=== PATIENT | male | born 1960 | race Caucasian/White ===

== ENCOUNTER 2016-07-17 19:31 | Emergency (ER) | END 2016-07-17 20:11 | disposition home or self-care (01) | DX: S16.1XXA Strain of muscle, fascia and tendon at neck level, initial encounter (principal); S39.012A Strain of muscle, fascia and tendon of lower back, initial encounter; V89.2XXA Person injured in unspecified motor-vehicle accident, traffic, initial encounter ==

== ENCOUNTER 2016-11-01 22:09 | Emergency (ER) | payer BC ==
[~2016-11-01] VITALS: Ht 167.6 cm; Wt 69.0 kg
[~2016-11-01 22:09] MED LIST: CYCL-319 PO; HYDR-906 PO; IBUP400T22 PO
[2016-11-01 22:22] VITALS: Ht 167.6 cm; Wt 69.0 kg
[2016-11-01] MEDS ORDERED: SOD CHLORIDE 0.9% 500 ML IV STA (22:32)
[2016-11-01] MEDS ORDERED: DIPHENHYDRAMINE 50 MG INJ IV STA (22:32)
[2016-11-01] MEDS ORDERED: METOCLOPRAMIDE 10 MG INJ IV STA (22:32)
[2016-11-01 22:59] LABS: ADD SCAN DIFF NO
[2016-11-01 23:01] LABS: BASOPHILS % 0.2 % (0.0-2.0); EOSINOPHILS # 0.1 10^3/ul (0.0-0.5); EOSINOPHILS % 1.8 % (0.0-7.0); HEMATOCRIT 40.3 % (42.0-52.0); LYMPHOCYTES # 2.3 10^3/ul (0.8-2.9); MEAN CORPUSCULAR HEMOGLOBIN 29.4 pg (29.0-33.0); MEAN CORPUSCULAR HGB CONC 34.7 g/dl (32.0-37.0); MEAN CORPUSCULAR VOLUME 84.7 fl (82.0-101.0); MEAN PLATELET VOLUME 9.9 fl (7.4-10.4); MONOCYTE # 0.3 10^3/ul (0.3-0.9); MONOCYTES % 5.3 % (0.0-11.0); NEUTROPHIL # 2.9 10^3/ul (1.6-7.5); NEUTROPHILS % 52.3 % (39.0-77.0); PLATELET COUNT 251 10^3/UL (140-415); RED BLOOD COUNT 4.76 10^6/ul (4.70-6.10); RED CELL DISTRIBUTION WIDTH 13.2 % (11.5-14.5); WHITE BLOOD COUNT 5.6 10^3/ul (4.8-10.8)
[2016-11-01 23:12] LABS: INR 0.83; PROTIME 11.4 Sec (12.2-14.2); PT RATIO 0.9
[2016-11-01 23:13] LABS: PARTIAL THROMBOPLASTIN TIME 26.2 Sec (25.0-35.0)
[2016-11-01 23:17] LABS: CALCIUM 8.7 mg/dl (8.4-10.2); CREATININE 0.88 mg/dl (0.61-1.24)
[2016-11-01] MEDS ORDERED: IOHEXOL 300MG/ML 150 ML BTL ONE (23:37)
[2016-11-01] MEDS ORDERED: SOD CHLORIDE 0.9% 100 ML ONE (23:37)
--- NOTE | 2016-11-02 00:37 | RADRPT ---
PROCEDURE: CT brain without contrast CLINICAL INDICATION: Headaches TECHNIQUE: A CT of the brain was performed utilizing axial sections from the skull base through th e vertex without contrast. Sagittal and coronal images were also reformatted. The exam CTDIvol = 45. 01 mGy and DLP = 810.25 mGy-cm. COMPARISON: None available FINDINGS: No acute intracranial hemorrhage is identified. There is no mass effect or midline shift. No extra -axial fluid collection is seen. The ventricles and sulci are within normal limits for size and con figuration. The density of the brain is within normal limits. Dickinson-white differentiation is preser debi. The osseous structures are unremarkable. The mastoid air cells and visualized paranasal sinuses are clear. RPTAT:HJJR IMPRESSION: Unremarkable noncontrast CT of the brain. Physician Nancy Date Time Electronically viewed and signed by Physician Nancy on 11/02/2016 00:37 /
--- NOTE | 2016-11-02 00:42 | RADRPT ---
PROCEDURE: CT angiogram brain. CLINICAL INDICATION: Headaches. TECHNIQUE: The study was performed utilizing 0.6 axial sections from the skull base to the vertex with the use of 100 cc of Omnipaque-300 intravenous contrast. Multiplanar and rotational MIP reform ats were obtained. 3-D reconstructions were not performed. CTDIvol = 112.69 mGy and DLP = 682.79 mG ycm. COMPARISON: Noncontrast head CT 11/02/2016 FINDINGS: CTA brain: Anterior circulation: The intracranial internal carotid arteries are normal bilaterally with no grey dence for occlusion or stenosis. The anterior and middle cerebral arteries are also normal with no evidence for narrowing. There is no vasculitis pattern or extraluminal projection of contrast to duran ggest an aneurysm. Posterior circulation: Basilar artery is uniform in caliber with no evidence of stenosis. The basi lar tip is unremarkable for aneurysm. The posterior cerebral arteries are normal bilaterally as are the superior cerebellar arteries. No vascular malformation is identified. Venous structures: Sagittal sinuses appear patent without evidence of thrombus. Transverse and sig moid sinuses are unremarkable as is the torcula. Internal cerebral veins, vein of Nahid and straigh t sinus show no abnormalities. No cortical vein abnormality is appreciated. RPTAT:HJJR IMPRESSION: 1. Unremarkable CT angiogram of the brain with no findings to correlate with the patient's provided history. Physician Nancy Date Time Electronically viewed and signed by Physician Nancy on 11/02/2016 00:41 /
[2016-11-02 02:07] LABS: # OF CELLS COUNTED 100
[2016-11-02 02:21] LABS: GLUCOSE,CSF 57 mg/dl (50-80)
[2016-11-02] MEDS ORDERED: FIORICET PO (02:46)
[2016-11-02] MEDS ORDERED: METO10TA92 PO (02:47)
[2016-11-02 02:48] LABS: %CREANATED RBC CSF 0 %; CSF COLOR COLORLESS; CSF#TUBES REC'D 4
[2016-11-02 02:49] LABS: CSF#TUBE COUNT TUBE#4
[2016-11-02 02:54] VITALS: BP 112/79; PULSE 80; RESP 20; TEMP 98.7
[2016-11-02 02:59] LABS: %CREANATED RBC CSF 0 %; CSF COLOR COLORLESS; CSF#TUBE COUNT TUBE#1; CSF#TUBES REC'D 4
--- NOTE | 2016-11-02 06:17 | ERD ---
ER Documentation Chief Complaint Date/Time DATE: 11/02/16 TIME: 06:12 Chief Complaint numbness left side of body x 2 days, cee x 5 days, equal web programmer, clear speech HPI This is a 56-year-old previously healthy male presenting with acute onset headache 5 days ago. The headache is on the left side of his head, throbbing, nonradiating, occasionally involving eye pain in his left eye. He denies any vision change or difficulty with balance. He denies any associated photophobia or phonophobia. No associated fevers, chills, nausea, vomiting, diarrhea, chest pain. No recent travel. No history of headaches similar to this. He denies any trauma. ROS All systems reviewed and are negative except as per history of present illness. Medications Home Meds Active Scripts Metoclopramide* (Reglan*) 10 Mg Tablet, 10 MG PO Q6 Y for HEADACHE, #10 TAB Prov:LYDIA HENDRICKS MD 11/02/16 Acetamin/Butalbital/Caffeine* (Fioricet*) [id number] Tab, 1 TAB PO Q6H Y for PAIN, #30 TAB Prov:LYDIA HENDRICKS MD 11/02/16 Ibuprofen* (Motrin*) 400 Mg Tab, 400 MG PO Q6H Y for PAIN AND OR ELEVATED TEMP, #30 TAB Prov:THOR PALMER NP 07/17/16 Discontinued Scripts Cyclobenzaprine Hcl* (Cyclobenzaprine Hcl*) 10 Mg Tablet, 10 MG PO TID, #15 TAB Prov:THOR PALMER NP 07/17/16 Hydrocodone/Acetaminophen ([place] 5-325 Tablet) 1 Each Tablet, 1 TAB PO Q6H Y for SEVERE PAIN LEVEL 7-10, #10 TAB Prov:THOR PALMER NP 07/17/16 Allergies Allergies: Coded Allergies: No Known Allergy (Unverified , 11/01/16) PMhx/Soc Medical and Surgical Hx: pt denies Medical Hx, pt denies Surgical Hx Hx Alcohol Use: No Hx Substance Use: No Hx Tobacco Use: No Smoking Status: Never smoker FmHx Family History: other (No history of aneurysms), No diabetes Physical Exam Vitals Vital Signs Date Time Temp Pulse Resp B/P Pulse Ox O2 Delivery O2 Flow Rate FiO2 11/02/16 02:54 98.7 80 20 112/79 99 Room Air 11/01/16 22:22 98.0 91 20 135/79 97 Physical Exam Const: Well-appearing, nontoxic, no distress Head: Atraumatic Eyes: Normal Conjunctiva, PERRLA, EOMI, no nystagmus, no photophobia ENT: Normal External Ears, Nose and Mouth. Neck: Full range of motion. No meningismus. Resp: Clear to auscultation bilaterally Cardio: Regular rate and rhythm, no murmurs Abd: Soft, non tender, non distended. Normal bowel sounds Skin: No petechiae or rashes Back: No midline or flank tenderness Ext: No cyanosis, or edema Neur: Awake and alert and oriented 3, cranial nerves intact, strength and sensations intact in all 4 extremities, cerebellar exam normal, gait normal, speech normal Psych: Normal Mood and Affect Result Diagram: 11/01/16224811/01/162248 Results 24 hrs Laboratory Tests Test 11/01/16 22:49 11/02/16 01:20 White Blood Count 5.610^3/ul Red Blood Count 4.7610^6/ul Hemoglobin 14.0g/dl Hematocrit 40.3% Mean Corpuscular Volume 84.7fl Mean Corpuscular Hemoglobin 29.4pg Mean Corpuscular Hemoglobin Concent 34.7g/dl Red Cell Distribution Width 13.2% Platelet Count 74917^3/UL Mean Platelet Volume 9.9fl Neutrophils % 52.3% Lymphocytes % 40.0% Monocytes % 5.3% Eosinophils % 1.8% Basophils % 0.2% Nucleated Red Blood Cells % 0.0/100WBC Neutrophils # 2.910^3/ul Lymphocytes # 2.310^3/ul Monocytes # 0.310^3/ul Eosinophils # 0.110^3/ul Basophils # 0.010^3/ul Nucleated Red Blood Cells # 0.010^3/ul Prothrombin Time 11.4Sec Prothrombin Time Ratio 0.9 INR International Normalized Ratio 0.83 Activated Partial Thromboplast Time 26.2Sec Sodium Level 137mmol/L Potassium Level 4.0mmol/L Chloride Level 106mmol/L Carbon Dioxide Level 26mmol/L Anion Gap 9 Blood Urea Nitrogen 23mg/dl Creatinine 0.88mg/dl Glucose Level 130mg/dl Calcium Level 8.7mg/dl CSF Tubes Submitted 4 CSF Volume 4.0ml CSF Appearance CLEAR CSF Color COLORLESS CSF WBC 1/uL CSF RBC 0/uL CSF Cell Count Tube # TUBE#4 CSF Total Cells Counted 100 CSF Neutrophils % % CSF Lymphocytes % 100% CSF Monocytes % % CSF Crenated Cells 0% CSF Glucose 57mg/dl CSF Total Protein 44mg/dl Current Medications Medications (Trade) Dose Ordered Sig/Fredi Route PRN Reason Start Time Stop Time Status Last Admin Dose Admin Sodium Chloride (NS) 500 ml @ 500 mls/hr Q1H STAT IV 11/01/16 22:32 11/01/16 23:31 DC 11/01/16 22:54 Metoclopramide HCl (Reglan) 10 mg ONCE STAT IV 11/01/16 22:32 11/01/16 22:36 DC 11/01/16 22:54 Diphenhydramine HCl 25 mg 25 mg ONCE STAT IV 11/01/16 22:32 11/01/16 22:36 DC 11/01/16 22:54 Sodium Chloride (NS) 100 ml @ ud STK-MED ONCE .ROUTE 11/01/16 23:37 11/01/16 23:38 DC 11/02/16 00:19 Iohexol (Omnipaque 300mg/ ml) 150 ml STK-MED ONCE .ROUTE 11/01/16 23:37 11/01/16 23:38 DC 11/02/16 00:18 Procedures/MDM Lumbar Puncture by me: Patient consented, time out performed, sterilely prepped/draped, anesthetized locally. Anesthesia: 1% lidocaine locally Location: One interspace below the iliac crest Technique: 22 gauge needle with stylet for entry and removal of needle Results: Clear CSF fluid No post procedure complications, bleeding, numbness or weakness. Patient is presenting with sudden onset headache that has been consistent for the past 5 days without any associated symptoms. Vitals are stable and he is afebrile. Neurologic exam is normal. Labs were all within normal limits. CT head and CT angiogram were done and did not show any acute abnormalities. Lumbar puncture was done to evaluate for subarachnoid hemorrhage and was negative for xanthochromia. There is no evidence of meningitis or encephalitis and I have a low suspicion for these anyway. I discussed the results with the patient. After Reglan IV his headache was a 3 out of 10. I recommended follow- up with primary care doctor if his headaches continue as he may need an outpatient MRI and further studies. Return precautions were discussed. I gave him a prescription for Fioricet for his headaches. Patient was discharged in a stable condition. Departure Diagnosis: Primary Impression: Headache Headache type: unspecified Headache chronicity pattern: acute headache Intractability: not intractable Qualified Code: R51 - Acute nonintractable headache, unspecified headache type Condition: Stable Patient Instructions: Headache, Unspecified Additional Instructions: If you continue to have headaches, you may need an MRI. See your primary care doctor in 1-2 days for a follow up. Return for any worsening symptoms. LYDIA HENDRICKS MD November 02, 2016 06:16
== END 2016-11-02 02:54 | disposition home or self-care (01) ==
LOC: E/R 22:09
DX: R51 Headache (principal)
CPT/HCPCS: 36415; 62270; 70450; 70496; 80048; 82945; 84157; 85025; 85610; 85730; 87070; 89050; 93005; 96374; 96375; J1200; J2765; J7040; Q9967; Z7502; Z7610

== ENCOUNTER 2016-11-06 14:19 | Emergency (ER) | payer BC ==
[~2016-11-06] VITALS: Ht 162.6 cm; Wt 67.0 kg
[~2016-11-06 14:19] MED LIST changes: -CYCL-319 PO; +FIORICET PO; -HYDR-906 PO; +METO10TA92 PO
[2016-11-06 14:25] VITALS: Ht 162.6 cm; Wt 67.0 kg
[2016-11-06] MEDS ORDERED: SOD CHLORIDE 0.9% 1,000 ML IV STA (16:34)
[2016-11-06] MEDS ORDERED: ONDANSETRON 4 MG INJ IV STA (16:34)
[2016-11-06] MEDS ORDERED: HYDROmorphONE 1 MG/ML SYG IV STA (16:34)
[2016-11-06 16:59] LABS: ADD SCAN DIFF NO
[2016-11-06 17:02] LABS: BASOPHILS % 0.3 % (0.0-2.0); EOSINOPHILS % 0.3 % (0.0-7.0); HEMATOCRIT 43.3 % (42.0-52.0); HEMOGLOBIN 15.1 g/dl (14.0-18.0); LYMPHOCYTES # 1.7 10^3/ul (0.8-2.9); LYMPHOCYTES % 16.1 % (15.0-51.0); MEAN CORPUSCULAR HEMOGLOBIN 29.2 pg (29.0-33.0); MEAN CORPUSCULAR HGB CONC 34.9 g/dl (32.0-37.0); MEAN CORPUSCULAR VOLUME 83.6 fl (82.0-101.0); MONOCYTE # 0.4 10^3/ul (0.3-0.9); MONOCYTES % 3.7 % (0.0-11.0); NEUTROPHIL # 8.4 10^3/ul (1.6-7.5); PLATELET COUNT 331 10^3/UL (140-415); RED BLOOD COUNT 5.18 10^6/ul (4.70-6.10); RED CELL DISTRIBUTION WIDTH 13.2 % (11.5-14.5); WHITE BLOOD COUNT 10.6 10^3/ul (4.8-10.8)
[2016-11-06 17:19] LABS: INR 0.96; PROTIME 12.8 Sec (12.2-14.2)
[2016-11-06 17:28] LABS: ALBUMIN 4.6 g/dl (3.3-4.9); POTASSIUM 3.7 mmol/L (3.5-5.1)
[2016-11-06 17:31] LABS: ALBUMIN/GLOBULIN RATIO 1.39; BILIRUBIN,INDIRECT 0.3 mg/dl (0-1.1); BILIRUBIN,TOTAL 0.3 mg/dl (0.2-1.3); CALCIUM 9.4 mg/dl (8.4-10.2); CREATININE 0.83 mg/dl (0.61-1.24); TOTAL PROTEIN 7.9 g/dl (6.1-8.1)
[2016-11-06] MEDS ORDERED: SOD CHLORIDE 0.9% 100 ML ONE (17:50)
[2016-11-06] MEDS ORDERED: IOHEXOL 100 ML ONE (17:50)
--- NOTE | 2016-11-06 18:36 | RADRPT ---
PROCEDURE: CTA Neck. CLINICAL INDICATION: Headaches TECHNIQUE: The study was performed utilizing a GE 64-slice multidetector CT scanner. Direct spiral axial sections were obtained through the neck with the use of 95 cc of Omnipaque-350 nonionic intra venous contrast material. Coronal and sagittal as well as maximal intensity projection reformations were obtained. The CTDI vol is 53.14 mGy and the DLP is 789.23 mGy-cm. The images were reviewed on a PACS workstation. COMPARISON: No prior studies are available for comparison. FINDINGS: The aortic arch is normal appearance. The origins of the great vessels are intact. Evaluation of the carotid bifurcation regions revealed no evidence for significant stenosis or occlusion. The left ve rtebral artery is dominant. The vertebral arteries are patent bilaterally. A 6 mm left thyroid lobe nodule is seen. IMPRESSION: 1. No hemodynamically significant stenosis in the carotid vasculature. 2. 6 mm left thyroid lobe nodule. RPTAT: HPNM Physician Bhavesh Date Time Electronically viewed and signed by Physician Bhavesh on 11/06/2016 18:36 /
[2016-11-06] MEDS ORDERED: IBUP-1542 PO (19:23)
[2016-11-06] MEDS ORDERED: OXYC-279 PO (19:23)
[2016-11-06] MEDS ORDERED: ONDA4TAB8 PO (19:23)
[2016-11-06] MEDS ORDERED: ELET20TA PO (19:32)
[2016-11-06 19:38] VITALS: BP 120/72; PULSE 74; RESP 17; TEMP 97.1
--- NOTE | 2016-11-06 19:42 | ERD ---
ER Documentation Chief Complaint Date/Time DATE: 11/06/16 TIME: 19:31 Chief Complaint EM, neck pain, SOB, nausea vietigo and loss apetite X 7 days. HPI 56-year-old man presents with continued headache and states the headache is mostly occipital and radiates down to his neck, pressure-like, and mostly positional. He states when he lays down he has almost 0 out of 10 pain but when he sits or stands he has a severe headache. He was seen and evaluated 5 days ago and a full workup including CT angiogram of the brain and lumbar puncture were negative. He saw his neurologist today who suggested his increasing headache may be secondary to recent lumbar puncture and stated that a blood patch may help his symptoms. Patient states he has a long history of chronic recurrent headaches and he and his family admit that the patient has about 5 headaches per month for many years. He states his headaches usually resolve after about 3-4 days, and when it lasted for 5 days he came in last week to be evaluated in the emergency department. A workup was performed in the ED and was unremarkable and he was discharged with Fioricet and metoclopramide which he states he has been using without relief and states his headache is mostly become positional at this time. He denies fevers or chills, no slurred speech, no blurry vision, no vomiting or diarrhea, no chest pain or shortness of breath, no abdominal pain. ROS All systems reviewed and are negative except as per history of present illness. Medications Home Meds Active Scripts Ibuprofen* (Ibuprofen*) 600 Mg Tablet, 600 MG PO Q8 for PAIN AND/OR INFLAMMATION , #30 TAB Prov:BUSHRA PIZARRO MD 11/06/16 Ondansetron Hcl* (Zofran*) 4 Mg Tablet, 4 MG PO Q8H Y for NAUSEA AND/OR VOMITING , #15 TAB Prov:BUSHRA PIZARRO MD 11/06/16 Oxycodone HCl/Acetaminophen (Percocet 5-325 mg Tablet) 1 Each Tablet, 1 EACH PO TID for PAIN LEVEL 6-10, #15 TAB Prov:BUSHRA PIZARRO MD 11/06/16 Discontinued Scripts Metoclopramide* (Reglan*) 10 Mg Tablet, 10 MG PO Q6 Y for HEADACHE, #10 TAB Prov:LYDIA HENDRICKS MD 11/02/16 Acetamin/Butalbital/Caffeine* (Fioricet*) [id number] Tab, 1 TAB PO Q6H Y for PAIN, #30 TAB Prov:LYDIA HENDRICKS MD 11/02/16 Ibuprofen* (Motrin*) 400 Mg Tab, 400 MG PO Q6H Y for PAIN AND OR ELEVATED TEMP, #30 TAB Prov:THOR PALMER CLIENT SUPPORT MANAGER 07/17/16 Cyclobenzaprine Hcl* (Cyclobenzaprine Hcl*) 10 Mg Tablet, 10 MG PO TID, #15 TAB Prov:THOR PALMER CLIENT SUPPORT MANAGER 07/17/16 Hydrocodone/Acetaminophen ([place] 5-325 Tablet) 1 Each Tablet, 1 TAB PO Q6H Y for SEVERE PAIN LEVEL 7-10, #10 TAB Prov:THOR PALMER CLIENT SUPPORT MANAGER 07/17/16 Allergies Allergies: Coded Allergies: No Known Allergy (Unverified , 11/06/16) PMhx/Soc Recurrent headaches Medical and Surgical Hx: pt denies Surgical Hx History of Surgery: No Anesthesia Reaction: No Hx Neurological Disorder: No Hx Respiratory Disorders: No Hx Cardiac Disorders: No Hx Psychiatric Problems: No Hx Alcohol Use: No Hx Substance Use: No Hx Tobacco Use: No Smoking Status: Never smoker FmHx Family History: No diabetes Physical Exam Vitals Vital Signs Date Time Temp Pulse Resp B/P Pulse Ox O2 Delivery O2 Flow Rate FiO2 11/06/16 14:25 97.0 84 18 124/79 100 Physical Exam GENERAL: Well-developed, well-nourished, well-hydrated, in no apparent distress , looks nontoxic in appearance HEENT: Moist mucous membranes, pink conjunctiva, no cervical spine tenderness or step-off deformities, no goiter, no jaundice or icterus, extraocular movements intact without pain. No submandibular induration, and no pharyngeal erythema NEURO: Alert and oriented 3, cranial nerves II through XII intact bilaterally, pupils equal round reactive to light, no focal deficits or facial asymmetry, sensation intact distally Strength 5/5 in upper and lower extremities bilaterally, no nystagmus, no Brudzinski's or Kernig's sign, no gait ataxia CARDIAC: Regular rate and rhythm, no murmurs rubs or gallops LUNGS: Clear bilaterally no wheezing crackles or stridor ABDOMEN: Soft nontender, no guarding, no rigidity, no rebound, no psoas sign no obturator sign. Normoactive bowel sounds SKIN: Warm and dry to touch, no abrasions, contusions, or hematomas, no lacerations, no ecchymosis, no target lesions, and without ulcers EXTREMITIES: No clubbing cyanosis or edema, calves are bilaterally symmetrical, no Homans sign, no popliteal cord sign. Distal pulses equal and bilateral PSYCH: Normal affect without agitation or irritability Result Diagram: 11/06/16164911/06/161649 Results 24 hrs Laboratory Tests Test 11/06/16 16:50 White Blood Count 10.610^3/ul Red Blood Count 5.1810^6/ul Hemoglobin 15.1g/dl Hematocrit 43.3% Mean Corpuscular Volume 83.6fl Mean Corpuscular Hemoglobin 29.2pg Mean Corpuscular Hemoglobin Concent 34.9g/dl Red Cell Distribution Width 13.2% Platelet Count 96486^3/UL Mean Platelet Volume 10.0fl Neutrophils % 79.0% Lymphocytes % 16.1% Monocytes % 3.7% Eosinophils % 0.3% Basophils % 0.3% Nucleated Red Blood Cells % 0.0/100WBC Neutrophils # 8.410^3/ul Lymphocytes # 1.710^3/ul Monocytes # 0.410^3/ul Eosinophils # 0.010^3/ul Basophils # 0.010^3/ul Nucleated Red Blood Cells # 0.010^3/ul Prothrombin Time 12.8Sec Prothrombin Time Ratio 1.0 INR International Normalized Ratio 0.96 Sodium Level 140mmol/L Potassium Level 3.7mmol/L Chloride Level 104mmol/L Carbon Dioxide Level 23mmol/L Anion Gap 17 Blood Urea Nitrogen 17mg/dl Creatinine 0.83mg/dl Glucose Level 98mg/dl Calcium Level 9.4mg/dl Total Bilirubin 0.3mg/dl Direct Bilirubin 0.00mg/dl Indirect Bilirubin 0.3mg/dl Aspartate Amino Transf (AST/SGOT) 21IU/L Alanine Aminotransferase (ALT/SGPT) 59IU/L Alkaline Phosphatase 57IU/L Total Protein 7.9g/dl Albumin 4.6g/dl Globulin 3.30g/dl Albumin/Globulin Ratio 1.39 Lipase 84U/L Current Medications Medications (Trade) Dose Ordered Sig/Fredi Route PRN Reason Start Time Stop Time Status Last Admin Dose Admin Sodium Chloride (NS) 1,000 ml @ 1,000 mls/hr Q1H STAT IV 11/06/16 16:34 11/06/16 17:33 DC 11/06/16 16:55 Hydromorphone HCl (Dilaudid) 1 mg ONCE STAT IV 11/06/16 16:34 11/06/16 16:36 DC 11/06/16 16:55 Ondansetron HCl (Zofran Inj) 4 mg ONCE STAT IV 11/06/16 16:34 11/06/16 16:36 DC 11/06/16 16:55 IV Flush 10 ml 10 ml STK-MED ONCE .ROUTE 11/06/16 17:50 11/06/16 17:51 DC 11/06/16 18:18 Sodium Chloride 100 ml @ ud STK-MED ONCE .ROUTE 11/06/16 17:50 11/06/16 17:51 DC 11/06/16 18:18 Iohexol (Omnipaque) 100 ml @ ud STK-MED ONCE .ROUTE 11/06/16 17:50 11/06/16 17:51 DC 11/06/16 18:19 Procedures/MDM IV line was established patient was placed on surveillance monitor rhythm strip revealed a sinus rhythm at about 80 bpm with upright P and T waves. Patient was afebrile. I administered 1 L normal saline intravenously, hydromorphone 1 mg IV, and Zofran 4 mg IV. I reviewed his previous imaging studies which included a CT head without contrast which was unremarkable and a CT angiogram of the cerebrum which was unremarkable. Please refer to radiologist dictation for full report. CT angiogram of the neck was performed there was no injury or abnormality to the carotid or vertebral arteries bilaterally. Please refer to radiologist dictation for full report. CBC and electrolytes were normal, liver function tests were normal, coagulation profile was normal. I obtained anesthesiology consultation with Dr. Antonio who stated it is preferable to wait at least a few more days until administering blood patch as it is not 100% effective and is not free of side effects. At this time the risks may outweigh benefits, but he did kindly agree to perform a blood patch procedure if family insists or if pain continues despite oral analgesic use at home. The patient's headache completely resolved even when going from a laying to standing position he had no complaints of pain I recommended outpatient management with opioid analgesics until his lumbar puncture headache resolves completely but we did agree if it continues despite oral opioid analgesics he may be a better candidate for blood patch. So patient and his family who was at the bedside agreed to the plan above. Differential diagnoses considered, included but not limited to acute coronary syndrome, pulmonary embolism, aortic dissection, abdominal aortic aneurysm, sepsis, stroke, meningitis, encephalitis, pneumonia, appendicitis, cholecystitis , bowel obstruction, pyelonephritis, nephrolithiasis, cystitis, as well as metabolic, hematologic, and electrolyte abnormalities. As well as abscess, cellulitis, fractures, and dislocations. Patient feels much better at this time, and vital signs are normal, symptoms have improved. I did give strict instructions to return to the ED if symptoms continue or worsen, patient will otherwise follow-up with primary care physician. Patient understood instructions and agreed to plan. Departure Diagnosis: Primary Impression: Headache Headache type: tension-type Headache chronicity pattern: acute headache Intractability: not intractable Qualified Code: G44.209 - Acute non intractable tension-type headache Additional Impression: Lumbar puncture headache Condition: Good Patient Instructions: Headache, Tension BUSHRA PIZARRO MD November 06, 2016 19:42
== END 2016-11-06 19:40 | disposition home or self-care (01) ==
LOC: E/R 14:19
DX: G97.1 Other reaction to spinal and lumbar puncture (principal); R40.2252 Coma scale, best verbal response, oriented, at arrival to emergency department; G44.209 Tension-type headache, unspecified, not intractable; R40.2142 Coma scale, eyes open, spontaneous, at arrival to emergency department; R40.2362 Coma scale, best motor response, obeys commands, at arrival to emergency department; R06.02 Shortness of breath
CPT/HCPCS: 36415; 70498; 80053; 83690; 85025; 85610; 96374; 96375; J1170; J2405; J7030; Q9967; Z7502; Z7610